=== PATIENT | female | born 1965 | race Caucasian/White ===

== ENCOUNTER 2017-01-03 09:37 | Emergency (ER) | payer OTHER ==
[~2017-01-03] VITALS: Ht 160 cm; Wt 108.0 kg
[~2017-01-03 09:37] MED LIST: AMBI10TA PO; ATOR40TA49 PO; CYMB30CA PO; HYDR10SO PO; LISI-360 PO; QUET1TAB65 PO; SYNT125T PO; XANA1TAB6 PO
[2017-01-03 09:46] VITALS: BP 116/84; PULSE 114; RESP 16; TEMP 98.3; O2SAT 95
[2017-01-03] MEDS ORDERED: CYMB60CA PO (10:07)
[2017-01-03] MEDS ORDERED: XANA1TAB2 PO (10:07)
[2017-01-03] MEDS ORDERED: LISI10TA3 PO (10:07)
[2017-01-03] MEDS ORDERED: LEVO-86 PO (10:07)
[2017-01-03] MEDS ORDERED: SERO200T PO (10:07)
[2017-01-03] MEDS ORDERED: ATOR20TA15 PO (10:07)
[2017-01-03] MEDS ORDERED: ACETAMINOPHEN/HYDROcodone 325 MG/5 MG TAB PO ONE (10:30)
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
--- NOTE | 2017-01-03 10:57 | RADHPO ---
EXAM DATE/TIME: 01/03/2017 10:31 [facility] COMPARISON: No previous studies available for comparison. INDICATIONS : Left knee pain MEDICAL HISTORY : None. SURGICAL HISTORY : Left knee meniscus repair ENCOUNTER: Initial ACUITY: 2 weeks PAIN SCORE: 10/10 LOCATION: Left medial knee FINDINGS: There is narrowing of the medial aspect of the medial joint space. There is prominent hypertrophic c hange at the medial tibial plateau. There is mild joint effusion. No acute fracture is seen. CONCLUSION: Degenerative and hypertrophic change at the medial joint space. Kosta Mckeon MD on January 03, 2017 at 10:48 Board Certified Radiologist. This report was verified electronically.
[2017-01-03 11:13] LABS: AUTOMATED NEUTROPHIL # 2.4 TH/MM3 (1.8-7.7); BASOPHIL # 0.1 TH/MM3 (0-0.2); BASOPHIL % 2.3 % (0.0-2.0); EOSINOPHIL # 0.2 TH/MM3 (0-0.4); HEMATOCRIT 36.8 % (35.0-46.0); HEMO FLAGS DIFF FINAL; LYMPH % 26.3 % (9.0-44.0); LYMPHOCYTE # 1.1 TH/MM3 (1.0-4.8); MEAN CELL VOLUME 83.5 FL (80.0-100.0); MEAN CORPUSCULAR HEMOGLOBIN 27.9 PG (27.0-34.0); MEAN CORPUSCULAR HGB CONC 33.4 % (32.0-36.0); MONO % 9.5 % (0.0-8.0); NEUT % 57.9 % (16.0-70.0); PLATELET COUNT 317 TH/MM3 (150-450); RED BLOOD COUNT 4.41 MIL/MM3 (4.00-5.30); RED CELL DISTRIBUTION WIDTH 13.1 % (11.6-17.2); WHITE BLOOD COUNT 4.2 TH/MM3 (4.0-11.0)
--- NOTE | 2017-01-03 11:17 | RADHPO ---
EXAM DATE/TIME: 01/03/2017 10:47 [facility] COMPARISON: CT BRAIN W/O CONTRAST, June 16, 2016, 16:09. INDICATIONS : Frequent falls. Dizziness. RADIATION DOSE: 59.18 CTDIvol (mGy) MEDICAL HISTORY : Cerebrovascular disease. Hypertension. Carcinoma, thyroid. SURGICAL HISTORY : Thyroidectomy. Hysterectomy. section.Orthopedic surgery. ENCOUNTER: Initial ACUITY: 2 days PAIN SCALE: 0/10 LOCATION: cranial TECHNIQUE: Multiple contiguous axial images were obtained of the head. Using automated exposure control and adj ustment of the mA and/or kV according to patient size, radiation dose was kept as low as reasonably a chievable to obtain optimal diagnostic quality images. FINDINGS: CEREBRUM: The ventricles are normal for age. No evidence of midline shift, mass lesion, hemorrhage or acute in farction. No extra-axial fluid collections are seen. POSTERIOR FOSSA: The cerebellum and brainstem are intact. The 4th ventricle is midline. The cerebellopontine angle i s unremarkable. EXTRACRANIAL: The visualized portion of the orbits is intact. SKULL: The calvaria is intact. No evidence of skull fracture. CONCLUSION: Normal examination. No significant change has occurred. Gildardo Barnett MD on January 03, 2017 at 11:16 Board Certified Radiologist. This report was verified electronically.
[2017-01-03 11:21] LABS: CHLORIDE 106 MEQ/L (98-107); POTASSIUM 4.3 MEQ/L (3.5-5.1); SODIUM (NA) 141 MEQ/L (136-145)
[2017-01-03 11:25] LABS: ANION GAP 7 MEQ/L (5-15); BICARBONATE 27.7 MEQ/L (21.0-32.0); BLOOD UREA NITROGEN 17 MG/DL (7-18)
[2017-01-03 11:28] LABS: ALT (GPT) 24 U/L (10-53); AST (GOT) 13 U/L (15-37); GLOMERULAR FILTRATION RATE 43 ML/MIN (>89)
[2017-01-03 11:30] LABS: TOTAL BILIRUBIN ADULT 0.3 MG/DL (0.2-1.0)
[2017-01-03 11:31] LABS: ALKALINE PHOSPHATASE 102 U/L (45-117); CREATINE KINASE 109 U/L (26-192)
[2017-01-03] MEDS ORDERED: NORC5TAB PO (12:04)
== END 2017-01-03 12:35 | disposition home or self-care (01) ==
LOC: PHED 09:37
DX: M25.562 Pain in left knee (principal); R51 Headache; R42 Dizziness and giddiness; E78.00 Pure hypercholesterolemia, unspecified; Z86.73 Personal history of transient ischemic attack (TIA), and cerebral infarction without residual deficits; I10 Essential (primary) hypertension; W06.XXXA Fall from bed, initial encounter; W07.XXXA Fall from chair, initial encounter; Y93.89 Activity, other specified; Y92.003 Bedroom of unspecified non-institutional (private) residence as the place of occurrence of the external cause
CPT/HCPCS: 70450; 73560; 80053; 82550; 85025

== ENCOUNTER 2017-10-17 08:42 | Emergency (ER) | payer OTHER ==
[~2017-10-17] VITALS: Ht 160 cm; Wt 107.0 kg
[~2017-10-17 08:42] MED LIST changes: -AMBI10TA PO; +ATOR20TA15 PO; -ATOR40TA49 PO; -CYMB30CA PO; +CYMB60CA PO; -HYDR10SO PO; +LEVO-86 PO; -LISI-360 PO; +LISI10TA3 PO; +NORC5TAB PO; -QUET1TAB65 PO; +SERO200T PO; -SYNT125T PO; +XANA1TAB2 PO; -XANA1TAB6 PO
[2017-10-17 08:47] VITALS: BP 129/84; PULSE 117; RESP 20; TEMP 99.7; O2SAT 96
[2017-10-17] MEDS ORDERED: LIOT5TAB3 PO (08:56)
[2017-10-17] MEDS ORDERED: ZOLP10TA3 PO (08:56)
[2017-10-17] MEDS ORDERED: ESCI20TA PO (08:56)
[2017-10-17] MEDS ORDERED: OMEP20TA93 PO (08:56)
--- NOTE | 2017-10-17 09:17 | PD ---
HPI Chief Complaint: Cold / Flu Symptoms Time Seen by Provider: 08:59 Travel History International Travel<30 days: No Contact w/Intl Traveler<30days: No Traveled to known affect area: No History of Present Illness HPI 51-year-old female presents to the emergency department complaining of cough, runny nose, congestion, and head pressure for 3 days. Patient states that she had 1 episode of nonbloody vomited once this morning decided to come in. Patient states she has been using Mucinex [id number] without relief. Patient has also experienced subjective fevers and chills since last night. That she has some chest discomfort and back pain with coughing without radiation or increasing intensity. Denies shortness of breath. Denies chest pain with inspiration. Says that her children have been sick and likely made her sick. Denies abdominal pain, diarrhea, or urinary symptoms. Patient denies any other medical issues. PFSH Past Medical History Arthritis: Yes (HANDS) Bipolar Disorder: Yes Anxiety: Yes Depression: Yes Cancer: Yes (THYROID) High Cholesterol: Yes Chest Pain: Yes Cerebrovascular Accident: Yes (TIA) Diminished Hearing: No GERD: Yes Headaches: Yes Herniated Disk: Yes Hypertension: Yes Musculoskeletal: Yes (CHRONIC BACK PAIN) Immunizations Current: Yes Radiation Therapy: Yes (THYROID) Thyroid Disease: Yes ?: Not Menopausal: Yes : 5 Para: 3 Miscarriage: 2 Tubal Ligation: Yes Past Surgical History Section: Yes (X 3) Endocrine Surgery: Yes (THYROIDECTOMY) Gynecologic Surgery: Yes (3 C-SECTIONS) Hysterectomy: Yes Tonsillectomy: Yes Other Surgery: Yes ( THYROID REMOVED, BREAST REDUCTION) Family History Family Hypercholesterolemia: Yes (PARENTS) Social History Alcohol Use: No Tobacco Use: No Substance Use: No Allergies-Medications (Allergen,Severity, Reaction): Coded Allergies: tramadol (Unverified Allergy, Unknown, Psychosis, 10/17/17) adhesive (Unverified Adverse Reaction, Intermediate, MAKES SKIN RED, 10/17) Reported Meds & Prescriptions Reported Meds & Active Scripts Active Phenergan (Promethazine HCl) 25 Mg Tablet 25 Mg PO Q6H PRN 3 Days Take 1/2 to 1 tab up to 4 times daily for nausea. Use sparingly. Use caution as this medication may make you feel drowsy. Reported Liothyronine (Liothyronine Sodium) 5 Mcg Tab 5 Mcg PO DAILY Omeprazole 20 Mg Tab 20 Mg PO DAILY Escitalopram (Escitalopram Oxalate) 20 Mg Tab 20 Mg PO DAILY Zolpidem (Zolpidem Tartrate) 10 Mg Tab 10 Mg PO HS PRN Synthroid (Levothyroxine Sodium) 137 Mcg Tab 137 Mcg PO DAILY Lisinopril 10 Mg Tab 10 Mg PO DAILY Atorvastatin (Atorvastatin Calcium) 20 Mg Tab 20 Mg PO HS Seroquel (Quetiapine Fumarate) 200 Mg Tab 100 Mg PO HS Xanax (Alprazolam) 1 Mg Tab 1 Mg PO Q8H PRN Review of Systems Except as stated in HPI: all other systems reviewed are Neg Physical Exam Narrative GENERAL: Well-nourished, well-developed patient. SKIN: Focused skin assessment warm/dry. HEAD: Normocephalic. TTP to left scalp, reproducing her head pain EYES: No scleral icterus. No injection or drainage. THROAT: No pharyngeal injection, exudates, or tonsillar hypertrophy. Airway is patent. Copious mucus present NECK: Supple, trachea midline. No JVD or lymphadenopathy. No meningismus CARDIOVASCULAR: Regular rate and rhythm without murmurs, gallops, or rubs. RESPIRATORY: Breath sounds equal bilaterally. No accessory muscle use. GASTROINTESTINAL: Abdomen soft, non-tender, nondistended. MUSCULOSKELETAL: No cyanosis, or edema. BACK: Nontender without obvious deformity. No CVA tenderness. Data Data Last Documented VS Vital Signs Date Time Temp Pulse Resp B/P (MAP) Pulse Ox O2 Delivery O2 Flow Rate FiO2 10/17/17 10:06 10/17/17 09:42 99.4 99 18 99 Orders Orders Chest, Single Ap (10/17/17 ) Influenzae A/B Antigen (10/17/17 09:08) Acetaminophen (Tylenol) (10/17/17 09:45) Ondansetron Odt (Zofran Odt) (10/17/17 09:45) Ed Discharge Order (10/17/17 09:46) MDM Medical Decision Making Medical Screen Exam Complete: Yes Emergency Medical Condition: Yes Differential Diagnosis Viral syndrome, influenza, upper respiratory infection, bronchitis Narrative Course 51-year-old female presents to the emergency department complaining of cough, runny nose, congestion, and head pressure for 3 days. Patient states that she had an episode of non-bloody vomiting this morning decided to come in. Patient states she has been using Mucinex [id number] without relief. Patient has also experienced subjective fevers and chills since last night. States she has some chest discomfort and back pain with coughing that developed over the last day without radiation or increasing intensity. Denies shortness of breath. Denies chest pain with inspiration. Says that her children have been sick and likely made her sick. Denies abdominal pain or any other urinary symptoms. Vital signs- mild tachycardia, improved with rest. Physical exam demonstrates a nontoxic-appearing 51-year-old female. Pharynx with copious clear mucus. Lungs clear to auscultation bilaterally. Abdomen soft and nontender Flu negative. CXR negative. Pt states she feels much better after coming to the ER today. She is happy with her care and is ready to go home. Patient describes a viral syndrome. Advised patient use Tylenol or Motrin per package instructions for her body aches. Advised to have adequate fluid intake. Patient offered Phenergan for nausea for outpatient use. Diagnosis Primary Impression: Viral syndrome Referrals: [facility] Patient Instructions: General Instructions Additional Instructions: Follow up with your primary care physician within 2-3 days. If your symptoms persist or worsen, return to the emergency department. Ensure you have adequate fluid intake. Scripts Promethazine (Phenergan) 25 Mg Tablet 25 MG PO Q6H Y for NAUSEA OR VOMITING for 3 Days, #12 TAB 0 Refills Take 1/2 to 1 tab up to 4 times daily for nausea. Use sparingly. Use caution as this medication may make you feel drowsy. Prov: Tammy Loza MD 10/17/17 Disposition: 01 DISCHARGE HOME Condition: Stable Alissa Rome Oct 17, 2017 09:17
--- NOTE | 2017-10-17 09:36 | RADRPT ---
EXAM DATE/TIME: 10/17/2017 09:22 [facility] COMPARISON: CHEST SINGLE AP, January 24, 2013, 23:42. INDICATIONS : Cough and congestion. MEDICAL HISTORY : Cerebrovascular disease. Hypertension. Carcinoma, thyroid. SURGICAL HISTORY : Thyroidectomy. Hysterectomy. ENCOUNTER: Initial ACUITY: 4 - 6 days PAIN SCORE: 3/10 LOCATION: Bilateral chest FINDINGS: A single view of the chest demonstrates the lungs to be symmetrically aerated without evidence of mas s, infiltrate or effusion. The cardiomediastinal contours are unremarkable. Osseous structures are intact. CONCLUSION: No acute disease. Jorje Khan MD FACR on October 17, 2017 at 9:34 Board Certified Radiologist. This report was verified electronically.
[2017-10-17 09:42] VITALS: PULSE 99; RESP 18; TEMP 99.4; O2SAT 99
[2017-10-17] MEDS ORDERED: ACETAMINOPHEN 500 MG CPLT PO ONE (09:45)
[2017-10-17] MEDS ORDERED: ONDANSETRON ODT 4 MG TAB PO ONE (09:45)
[2017-10-17] MEDS ORDERED: PROM25TA10 PO (10:23)
== END 2017-10-17 10:07 | disposition home or self-care (01) ==
LOC: PHEFT 08:42
DX: B34.9 Viral infection, unspecified (principal); E78.00 Pure hypercholesterolemia, unspecified; I10 Essential (primary) hypertension; F31.9 Bipolar disorder, unspecified; F41.9 Anxiety disorder, unspecified; K21.9 Gastro-esophageal reflux disease without esophagitis; E07.9 Disorder of thyroid, unspecified; Z86.73 Personal history of transient ischemic attack (TIA), and cerebral infarction without residual deficits
CPT/HCPCS: 71010; 87804; 99284